=== PATIENT | female | born 1965 | race Caucasian/White ===

== ENCOUNTER → 2017-03-25 | Outpatient (REF) | payer OTHER ==
[~2017-03-25] MED LIST: PRIL40CA PO
[2017-03-25 13:52] LABS: BASO # 0.1 10^3/uL (0.0-0.2); BASO % 0.7 % (0.0-1.0); EOS # 0.3 10^3/uL (0.0-0.50); IMMATURE GRANULOCYTE % 0.6 % (0-0); LYMPH # 1.9 10^3/uL (1.5-4.5); LYMPH % 18.3 % (24.0-44.0); MEAN CORPUSCULAR HGB CONC 27.9 g/dl (32.0-36.5); MONO % 9.1 % (0.0-5.0); NEUTROPHILS # 7.3 10^3/uL (1.8-7.7); NEUTROPHILS % 68.3 % (36.0-66.0); PLATELET COUNT, AUTOMATED 386 10^3/uL (150-450); WHITE BLOOD COUNT 10.6 10^3/uL (4.0-10.0)
[2017-03-25 14:00] LABS: ADD MORPHOLOGY? YES; MEAN CORPUSCULAR VOLUME 68.1 fl (80.0-96.0); RED CELL DISTRIBUTION WIDTH 21.5 % (11.5-14.5)
[2017-03-25 14:20] LABS: HYPOCHROMASIA 2+; MICROCYTOSIS 3+
[2017-03-25 14:21] LABS: POIKILOCYTOSIS 1+
== END ==
LOC: M LAB REF 13:07
PROVIDERS: ATTEND Family Medicine Addiction Medicine
DX: D72.829 Elevated white blood cell count, unspecified (principal)

== ENCOUNTER 2018-08-28 21:10 | Emergency (ER) | payer OTHER ==
[~2018-08-28] VITALS: Ht 152.4 cm; Wt 58.2 kg
[2018-08-28 22:39] VITALS: BP 119/61
--- NOTE | 2018-08-28 22:45 | REPVR ---
EXAM: CT Thoracic Spine Without Contrast EXAM DATE/TIME: 08/28/2018 10:11 PM CLINICAL HISTORY: 53 years old, female; Pain; Pain in thoracic spine; Additional info: Tr/ r t12 costovertebral pain TECHNIQUE: Axial computed tomography images of the thoracic spine without intravenous contrast. All CT scans at this facility use at least one of these dose optimization techniques: automated exposure control; mA and/or kV adjustment per patient size (includes targeted exams where dose is matched to clinical indication); or iterative reconstruction. Coronal and sagittal reformatted images were created and reviewed. COMPARISON: CR SPINE THORACIC AP, LAT 08/28/2018 9:31 PM FINDINGS: Vertebrae: No acute fracture. Normal alignment. Discs/Spinal canal/Neural foramina: No spinal stenosis. No neural foraminal narrowing. Soft tissues: Unremarkable. IMPRESSION: Negative CT thoracic spine. No fracture or subluxation is evident and no spinal or foraminal stenosis. Electronically signed by: Andrew Romeo On 08/28/2018 22:45:11 PM
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
== END 2018-08-28 22:40 | disposition left against medical advice (07) ==
LOC: M ED 21:10 → EDBD 21:10 → M ED 22:40
DX: F10.229 Alcohol dependence with intoxication, unspecified (principal); S20.419A Abrasion of unspecified back wall of thorax, initial encounter; W22.8XXA Striking against or struck by other objects, initial encounter; Y92.018 Other place in single-family (private) house as the place of occurrence of the external cause; K21.9 Gastro-esophageal reflux disease without esophagitis; Z79.899 Other long term (current) drug therapy; F17.210 Nicotine dependence, cigarettes, uncomplicated

== ENCOUNTER 2018-09-22 19:07 | Emergency (ER) | payer OTHER ==
[~2018-09-22] VITALS: Ht 160 cm; Wt 67.3 kg
[2018-09-22] MEDS ORDERED: KETOROLAC 30 MG/ML VIAL (J1885) IM ONE (21:30)
[2018-09-22] MEDS ORDERED: METHOCARBAMOL 750 MG TAB PO ONE (21:30)
--- NOTE | 2018-09-22 22:33 | REP ---
Clinical: Pain. Technique: AP, lateral, bilateral oblique and coned-down views of the lumbosacral spine. Findings: Alignment and lordosis maintained. Vertebral bodies are intact. No acute fracture / compression injury or subluxation. No significant degenerative changes are appreciated. No spondylolysis or spondylolisthesis. Impression: Age-appropriate lumbosacral spine radiographs. Electronically Signed by Daniele Parra MD 09/22/2018 10:25 P
[2018-09-22] MEDS ORDERED: NAPR-837 PO (22:52)
[2018-09-22] MEDS ORDERED: ROBA500T PO (22:52)
[2018-09-22 23:02] VITALS: BP 153/75
== END 2018-09-22 23:05 | disposition home or self-care (01) ==
LOC: M ED 19:07
DX: S39.012A Strain of muscle, fascia and tendon of lower back, initial encounter (principal); X50.0XXA Overexertion from strenuous movement or load, initial encounter; Y92.89 Other specified places as the place of occurrence of the external cause; Y93.89 Activity, other specified; M54.32 Sciatica, left side; K21.9 Gastro-esophageal reflux disease without esophagitis; F17.200 Nicotine dependence, unspecified, uncomplicated; Z79.899 Other long term (current) drug therapy
CPT/HCPCS: 72110; 96372; 99283; J1885